=== PATIENT | male | born 1940 | race Caucasian/White ===

== ENCOUNTER 2016-10-07 19:28 | Inpatient (IN) | payer OTHER ==
[2016-10-07 20:05] LABS: BASOPHIL 0.4 % (0-2); EOSINOPHIL 3.6 % (0-7); LYMPHOCYTE 15.6 % (15-48); MCH 30.4 pg (25.0-31.0); MCHC 32.3 g/dL (32.0-36.0); MCV 94.1 fL (78.0-100.0); MONOCYTE 13.8 % (0-12); MPV 9.9 fL (6.0-9.5); NEUTROPHIL 66.6 % (41-80); PLT 184 K/uL (150-400); RBC 6.06 M/uL (4.70-6.00); RDW 16.5 % (11.5-14.0); WBC 11.1 K/uL (4.0-10.5)
[2016-10-07 20:09] LABS: HGB 18.4 g/dl (13.2-18.0)
[2016-10-07 20:15] LABS: INR 1.19 (0.9-1.2); PROTHROMBIN TIME 14.7 SECONDS (11.7-14.0); PTT 28.6 SECONDS (23.2-31.4)
[2016-10-07 20:17] LABS: D-DIMER 2.61 ug/mLFEU (0.00-0.41)
[2016-10-07 20:23] LABS: ALBUMIN 3.1 g/dL (3.4-4.8); BILIRUBIN - TOTAL 0.7 mg/dL (0.1-1.0); CREATININE 1.6 mg/dL (0.7-1.2); GLOBULIN (CALCULATION) 4.4 g/dL (2.2-4.2); POTASSIUM 4.4 mmol/L (3.5-5.1); TOTAL PROTEIN 7.5 g/dL (6.4-8.3)
[2016-10-07 20:25] LABS: CKMB 3.74 ng/mL (0.97-4.94); TROPONIN T 0.057 ng/mL
[2016-10-07 20:35] LABS: FT4 (FREE T4) 1.07 ng/dL (0.93-1.70); TSH (THYROID STIM HORMONE) 0.939 uIU/mL (0.270-4.200)
[2016-10-08 04:35] LABS: BILIRUBIN 1+ mg/dL (NEGATIVE); BLOOD TRACE-INTACT Ery/uL (NEGATIVE); CLARITY CLEAR (CLEAR); COLOR STRAW (YELLOW); GLUCOSE (U) NORMAL (NORMAL); KETONE (U) NEGATIVE (NEGATIVE); LEUKOCYTES NEGATIVE Leu/uL (NEGATIVE); NITRITE NEGATIVE (NEGATIVE); PROTEIN 3+ mg/dL (NEGATIVE); SPECIFIC GRAVITY >=1.030 (1.001-1.030)
[2016-10-08 06:04] LABS: BASOPHIL 0.2 % (0-2); EOSINOPHIL 5.3 % (0-7); HCT 54.2 % (42.0-52.0); HGB 17.5 g/dl (13.2-18.0); LYMPHOCYTE 18.2 % (15-48); MCH 30.8 pg (25.0-31.0); MCHC 32.3 g/dL (32.0-36.0); MCV 95.3 fL (78.0-100.0); MONOCYTE 16.1 % (0-12); MPV 10.8 fL (6.0-9.5); NEUTROPHIL 60.2 % (41-80); PLT 191 K/uL (150-400); RBC 5.69 M/uL (4.70-6.00); RDW 16.4 % (11.5-14.0); WBC 9.7 K/uL (4.0-10.5)
[2016-10-08 06:27] LABS: ALBUMIN 2.7 g/dL (3.4-4.8); BILIRUBIN - TOTAL 0.6 mg/dL (0.1-1.0); CKMB 3.39 ng/mL (0.97-4.94); CREATININE 1.8 mg/dL (0.7-1.2); GLOBULIN (CALCULATION) 4.2 g/dL (2.2-4.2); MAGNESIUM 2.17 mg/dL (1.40-2.10); POTASSIUM 4.5 mmol/L (3.5-5.1); TOTAL PROTEIN 6.9 g/dL (6.4-8.3); TROPONIN T 0.078 ng/mL
[2016-10-08 11:19] LABS: CKMB 2.96 ng/mL (0.97-4.94); TROPONIN T 0.07 ng/mL
[2016-10-09 04:19] LABS: BASOPHIL 0.1 % (0-2); EOSINOPHIL 0 % (0-7); HCT 52.4 % (42.0-52.0); HGB 17.3 g/dl (13.2-18.0); LYMPHOCYTE 8.5 % (15-48); MCH 30.7 pg (25.0-31.0); MCV 92.9 fL (78.0-100.0); MONOCYTE 2.4 % (0-12); MPV 10.9 fL (6.0-9.5); PLT 198 K/uL (150-400); RBC 5.64 M/uL (4.70-6.00); RDW 16.3 % (11.5-14.0); WBC 10.1 K/uL (4.0-10.5)
[2016-10-09 04:39] LABS: ALBUMIN 2.9 g/dL (3.4-4.8); BILIRUBIN - TOTAL 0.6 mg/dL (0.1-1.0); CREATININE 2.2 mg/dL (0.7-1.2); GLOBULIN (CALCULATION) 3.4 g/dL (2.2-4.2); MAGNESIUM 2.26 mg/dL (1.40-2.10); POTASSIUM 3.9 mmol/L (3.5-5.1); TOTAL PROTEIN 6.3 g/dL (6.4-8.3)
[2016-10-10 03:49] LABS: BASOPHIL 0.1 % (0-2); EOSINOPHIL 0 % (0-7); HCT 51.2 % (42.0-52.0); HGB 17.3 g/dl (13.2-18.0); LYMPHOCYTE 3.4 % (15-48); MCH 30.7 pg (25.0-31.0); MCHC 33.8 g/dL (32.0-36.0); MCV 90.9 fL (78.0-100.0); MONOCYTE 3.2 % (0-12); MPV 10.7 fL (6.0-9.5); NEUTROPHIL 93.3 % (41-80); PLT 214 K/uL (150-400); RBC 5.63 M/uL (4.70-6.00); RDW 16.4 % (11.5-14.0); WBC 17.4 K/uL (4.0-10.5)
[2016-10-10 04:05] LABS: ALBUMIN 2.7 g/dL (3.4-4.8); BILIRUBIN - TOTAL 0.4 mg/dL (0.1-1.0); CREATININE 2.3 mg/dL (0.7-1.2); GLOBULIN (CALCULATION) 3.7 g/dL (2.2-4.2); MAGNESIUM 2.33 mg/dL (1.40-2.10); POTASSIUM 3.5 mmol/L (3.5-5.1); TOTAL PROTEIN 6.4 g/dL (6.4-8.3)
[2016-10-10 15:13] LABS: URINE CREATININE 48.6 mg/dL (40-278)
[2016-10-10 18:44] LABS: BILIRUBIN NEGATIVE (NEGATIVE); BLOOD 3+ Ery/uL (NEGATIVE); CLARITY CLOUDY (CLEAR); COLOR YELLOW (YELLOW); GLUCOSE (U) NORMAL (NORMAL); KETONE (U) NEGATIVE (NEGATIVE); LEUKOCYTES TRACE Leu/uL (NEGATIVE); NITRITE NEGATIVE (NEGATIVE); PROTEIN TRACE (LOW) mg/dL (NEGATIVE); UROBILINOGEN 0.2 mg/dL (0.2-1.0)
[2016-10-10 18:57] LABS: URINE CHLORIDE 69.5 mmol/L; URINE POTASSIUM 34.49 mmol/L
[2016-10-11 04:27] LABS: BASOPHIL 0 % (0-2); EOSINOPHIL 0 % (0-7); HCT 50.1 % (42.0-52.0); HGB 16.9 g/dl (13.2-18.0); MCH 30.7 pg (25.0-31.0); MCHC 33.7 g/dL (32.0-36.0); MCV 91.1 fL (78.0-100.0); MONOCYTE 2.7 % (0-12); MPV 10.5 fL (6.0-9.5); NEUTROPHIL 95.3 % (41-80); PLT 215 K/uL (150-400); RDW 16.5 % (11.5-14.0)
[2016-10-11 04:48] LABS: CREATININE 2.1 mg/dL (0.7-1.2); MAGNESIUM 2.28 mg/dL (1.40-2.10); PHOSPHORUS 4.4 mg/dL (2.7-4.5)
[2016-10-11 16:40] LABS: CREATININE 1.9 mg/dL (0.7-1.2); POTASSIUM 4.6 mmol/L (3.5-5.1)
[2016-10-12 03:44] LABS: BASOPHIL 0.1 % (0-2); EOSINOPHIL 0 % (0-7); HCT 51.4 % (42.0-52.0); HGB 17.3 g/dl (13.2-18.0); LYMPHOCYTE 2.6 % (15-48); MCH 30.7 pg (25.0-31.0); MCHC 33.7 g/dL (32.0-36.0); MCV 91.3 fL (78.0-100.0); MONOCYTE 2.2 % (0-12); MPV 10.7 fL (6.0-9.5); NEUTROPHIL 95.1 % (41-80); PLT 197 K/uL (150-400); RBC 5.63 M/uL (4.70-6.00); RDW 16.6 % (11.5-14.0); WBC 14.7 K/uL (4.0-10.5)
[2016-10-12 04:01] LABS: CREATININE 1.9 mg/dL (0.7-1.2); MAGNESIUM 2.31 mg/dL (1.40-2.10); PHOSPHORUS 5.2 mg/dL (2.7-4.5); POTASSIUM 4.4 mmol/L (3.5-5.1)
[2016-10-13 04:14] LABS: BASOPHIL 0.1 % (0-2); EOSINOPHIL 0 % (0-7); HCT 47.5 % (42.0-52.0); HGB 15.8 g/dl (13.2-18.0); MCH 30.6 pg (25.0-31.0); MCHC 33.3 g/dL (32.0-36.0); MCV 91.9 fL (78.0-100.0); MONOCYTE 7.7 % (0-12); MPV 11.2 fL (6.0-9.5); NEUTROPHIL 89.2 % (41-80); PLT 216 K/uL (150-400); RBC 5.17 M/uL (4.70-6.00); RDW 16.4 % (11.5-14.0)
[2016-10-13 04:40] LABS: CREATININE 1.7 mg/dL (0.7-1.2); MAGNESIUM 2.44 mg/dL (1.40-2.10); PHOSPHORUS 4.4 mg/dL (2.7-4.5); POTASSIUM 4.3 mmol/L (3.5-5.1)
[2016-10-13 12:45] LABS: BILIRUBIN NEGATIVE (NEGATIVE); BLOOD 3+ Ery/uL (NEGATIVE); CLARITY HAZY (CLEAR); COLOR YELLOW (YELLOW); GLUCOSE (U) NORMAL (NORMAL); KETONE (U) NEGATIVE (NEGATIVE); LEUKOCYTES NEGATIVE Leu/uL (NEGATIVE); NITRITE NEGATIVE (NEGATIVE); PROTEIN TRACE (LOW) mg/dL (NEGATIVE); UROBILINOGEN 0.2 mg/dL (0.2-1.0)
[2016-10-13 12:50] LABS: URINARY RBC TNTC
[2016-10-13 12:51] LABS: BACTERIA TRACE
[2016-10-14 01:37] LABS: HCT 33.9 % (42.0-52.0); MCHC 32.4 g/dL (32.0-36.0); MCV 92.4 fL (78.0-100.0); MPV 10.1 fL (6.0-9.5); RBC 3.67 M/uL (4.70-6.00); RDW 15.8 % (11.5-14.0); WBC 19.7 K/uL (4.0-10.5)
[2016-10-14 01:49] LABS: INR 1.28 (0.9-1.2); PROTHROMBIN TIME 15.5 SECONDS (11.7-14.0)
[2016-10-14 03:54] LABS: ALBUMIN 2.2 g/dL (3.4-4.8); BILIRUBIN - TOTAL 0.3 mg/dL (0.1-1.0); GLOBULIN (CALCULATION) 2.1 g/dL (2.2-4.2); MAGNESIUM 2.46 mg/dL (1.40-2.10); PHOSPHORUS 5.5 mg/dL (2.7-4.5); POTASSIUM 4.8 mmol/L (3.5-5.1); TOTAL PROTEIN 4.3 g/dL (6.4-8.3)
[2016-10-14 05:16] LABS: BILIRUBIN NEGATIVE (NEGATIVE); BLOOD 3+ Ery/uL (NEGATIVE); CLARITY HAZY (CLEAR); COLOR STRAW (YELLOW); GLUCOSE (U) NORMAL (NORMAL); KETONE (U) NEGATIVE (NEGATIVE); LEUKOCYTES NEGATIVE Leu/uL (NEGATIVE); NITRITE NEGATIVE (NEGATIVE); PROTEIN TRACE (LOW) mg/dL (NEGATIVE); SPECIFIC GRAVITY 1.025 (1.001-1.030); UROBILINOGEN 0.2 mg/dL (0.2-1.0)
[2016-10-14 08:23] LABS: BASOPHIL 0.1 % (0-2); EOSINOPHIL 0.1 % (0-7); HCT 33.7 % (42.0-52.0); HGB 11.3 g/dl (13.2-18.0); MCH 30.8 pg (25.0-31.0); MCHC 33.5 g/dL (32.0-36.0); MCV 91.8 fL (78.0-100.0); MPV 10.3 fL (6.0-9.5); NEUTROPHIL 86.8 % (41-80); PLT 279 K/uL (150-400); RBC 3.67 M/uL (4.70-6.00); RDW 15.7 % (11.5-14.0); WBC 28.3 K/uL (4.0-10.5)
[2016-10-14 08:32] LABS: INR 1.22 (0.9-1.2); PTT 30.5 SECONDS (23.2-31.4)
[2016-10-14 08:33] LABS: D-DIMER 0.92 ug/mLFEU (0.00-0.41)
[2016-10-14 08:40] LABS: ALBUMIN 2.4 g/dL (3.4-4.8); BILIRUBIN - TOTAL 0.5 mg/dL (0.1-1.0); CREATININE 2.2 mg/dL (0.7-1.2); GLOBULIN (CALCULATION) 2.4 g/dL (2.2-4.2); MAGNESIUM 2.42 mg/dL (1.40-2.10); POTASSIUM 4.7 mmol/L (3.5-5.1); TOTAL PROTEIN 4.8 g/dL (6.4-8.3)
[2016-10-14 13:31] LABS: BASOPHIL 0.1 % (0-2); EOSINOPHIL 0.1 % (0-7); HCT 34.9 % (42.0-52.0); HGB 11.9 g/dl (13.2-18.0); LYMPHOCYTE 5.1 % (15-48); MCH 30.2 pg (25.0-31.0); MCHC 34.1 g/dL (32.0-36.0); MCV 88.6 fL (78.0-100.0); MONOCYTE 3.5 % (0-12); MPV 10.6 fL (6.0-9.5); NEUTROPHIL 91.2 % (41-80); PLT 247 K/uL (150-400); RBC 3.94 M/uL (4.70-6.00); RDW 16.2 % (11.5-14.0); WBC 28.2 K/uL (4.0-10.5)
[2016-10-14 13:45] LABS: CREATININE 2.2 mg/dL (0.7-1.2); POTASSIUM 4.8 mmol/L (3.5-5.1)
== END 2016-10-14 18:10 | disposition other institution (70) | DRG 871 ==
LOC: FER 19:28 → FICU 10-08
PROVIDERS: Emergency Medicine Emergency Medical Services; Internal Medicine; Internal Medicine Nephrology; ADMIT Internal Medicine
PROC: 0BH17EZ Insertion of Endotracheal Airway into Trachea, Via Natural or Artificial Opening (ICD-10-PCS; principal; 2016-10-08)
PROC: 5A1945Z Respiratory Ventilation, 24-96 Consecutive Hours (ICD-10-PCS; 2016-10-08)
PROC: 05H433Z Insertion of Infusion Device into Left Innominate Vein, Percutaneous Approach (ICD-10-PCS; 2016-10-10)
PROC: 05H433Z Insertion of Infusion Device into Left Innominate Vein, Percutaneous Approach (ICD-10-PCS; 2016-10-14)
PROC: 30233N1 Transfusion of Nonautologous Red Blood Cells into Peripheral Vein, Percutaneous Approach (ICD-10-PCS; 2016-10-14)
PROC: 30233K1 Transfusion of Nonautologous Frozen Plasma into Peripheral Vein, Percutaneous Approach (ICD-10-PCS; 2016-10-14)
DX: A41.9 Sepsis, unspecified organism (principal); J96.01 Acute respiratory failure with hypoxia; R65.21 Severe sepsis with septic shock; I50.33 Acute on chronic diastolic (congestive) heart failure; J96.02 Acute respiratory failure with hypercapnia; N17.9 Acute kidney failure, unspecified; J18.9 Pneumonia, unspecified organism; I13.0 Hypertensive heart and chronic kidney disease with heart failure and stage 1 through stage 4 chronic kidney disease, or unspecified chronic kidney disease; I27.2 Other secondary pulmonary hypertension; J44.0 Chronic obstructive pulmonary disease with (acute) lower respiratory infection; J44.1 Chronic obstructive pulmonary disease with (acute) exacerbation; I73.9 Peripheral vascular disease, unspecified; M10.9 Gout, unspecified; N40.0 Benign prostatic hyperplasia without lower urinary tract symptoms; I49.9 Cardiac arrhythmia, unspecified; N18.3 Chronic kidney disease, stage 3 (moderate); I48.91 Unspecified atrial fibrillation; M79.81 Nontraumatic hematoma of soft tissue; Z96.652 Presence of left artificial knee joint; Z88.0 Allergy status to penicillin; Z88.1 Allergy status to other antibiotic agents; Z87.891 Personal history of nicotine dependence
CPT/HCPCS: 31500; 36415; 36430; 36600; 71010; 71250; 74000; 74022; 80048; 80053; 80061; 81001; 81003; 82436; 82550; 82553; 82570; 82803; 82962; 83520; 83605; 83735; 83880; 84100; 84133; 84145; 84156; 84300; 84439; 84443; 84484; 85025; 85379; 85384; 85610; 85730; 86021; 86160; 86850; 86900; 86901; 86922; 87040; 87070; 87088; 87205; 87804; 87899; 93005; 93970; 93971; 94002; 94010; 94640; 94660; 94667; 94668; 94770; 97110; 97163; 97167; 97530; 97530-GP; C9113; J0131; J0282; J0456; J1160; J1450; J1940; J2020; J2185; J2270; J2704; J2765; J2930; J3370; P9016; P9017